=== PATIENT | female | born 1975 | race American Indian/Alaskan Native ===

== ENCOUNTER 2018-08-03 06:19 | Day surgery (SDC) | payer BC ==
[~2018-08-03 06:19] MED LIST: ANCEF/STERILE WATER 2 GM/20 ML 2 GM/20 ML SYRINGE IV NR
[2018-08-03] MEDS ORDERED: LACTATED RINGERS 1,000 ML IV SCH (06:24)
[2018-08-03] MEDS ORDERED: LACTATED RINGERS 1,000 ML ONE (06:36)
[2018-08-03] MEDS ORDERED: XYLOCAINE 1% 20 mL ONE (07:15)
[2018-08-03] MEDS ORDERED: DECADRON ONE (07:16)
[2018-08-03] MEDS ORDERED: MARCAINE 0.25% INFILTRATI ONE ×2 (07:16→07:45)
[2018-08-03] MEDS ORDERED: ANTIBIOTIC OINT TP ONE (07:16)
--- NOTE | 2018-08-03 07:23 | Anesthesia Day of Surgery ---
Anesthesia Day of Surgery - Day of Surgery Patient Examined: Yes Patient H&P Reviewed: Yes Patient is NPO: Yes
--- NOTE | 2018-08-03 07:23 | Anesthesia Consultation ---
Anesthesia Consult and Med Hx Date of service: 08/03/18 - Airway Anesthetic Teeth Evaluation: Good ROM Head & Neck: Adequate Mental/Hyoid Distance: Adequate Mallampati Class: Class II Intubation Access Assessment: Probably Good - Pre-Operative Health Status ASA Pre-Surgery Classification: ASA2 - Pulmonary Hx Smoking: No (STOPPED X 25 YRS) Hx Sleep Apnea: No (PATRICK PRE SCREEN LOW RISK.) - Cardiovascular System Hx Hypertension: No (RECENTLY HBP-NO DX , NO MEDS) - Hematic Hx Anemia: Yes ( CHILD ONLY) - Other Systems Hx Alcohol Use: Yes (WINE QD) Hx Cancer: No
[2018-08-03] MEDS ORDERED: VERSED ONE (07:34)
[2018-08-03] MEDS ORDERED: XYLOCAINE MPF 2% ONE (07:34)
[2018-08-03] MEDS ORDERED: DILAUDID ONE (07:34)
[2018-08-03] MEDS ORDERED: DIPRIVAN 10 MG/ML IV ONE ×2 (07:34→08:04)
[2018-08-03] MEDS ORDERED: NACL 0.9% IR ONE (07:45)
[2018-08-03] MEDS ORDERED: DECADRON IV ONE (07:45)
[2018-08-03] MEDS ORDERED: XYLOCAINE 1% 20 mL INFILTRATI ONE (07:45)
[2018-08-03] MEDS ORDERED: DILAUDID IV PRN (08:00)
[2018-08-03] MEDS ORDERED: SUBLIMAZE IV PRN (08:00)
[2018-08-03] MEDS ORDERED: VERSED IV NR (08:00)
[2018-08-03] MEDS ORDERED: PEPCID IV NR (08:00)
[2018-08-03] MEDS ORDERED: ZOFRAN IV PRN (08:00)
[2018-08-03] MEDS ORDERED: ZOFRAN ONE (08:18)
[2018-08-03] MEDS ORDERED: TORADOL ONE (08:31)
[2018-08-03 09:37] VITALS: BP 146/64
--- NOTE | 2018-08-03 15:01 | Post Anesthesia Evaluation ---
- Post Anesthesia Evaluation Patient Participated: Yes Airway Patent: Yes Stable Respiratory Function: Yes Nausea/Vomiting: No Temp > 96.8F: Yes Pain Manageable: Yes Adequeate Hydration: Yes Anesthesia Complications: No
--- NOTE | 2018-08-04 11:05 | Operative Report ---
PREOPERATIVE DIAGNOSIS: Painful bunion, right foot. POSTOPERATIVE DIAGNOSIS: Painful bunion, right foot. SURGICAL PROCEDURE: Modified Sims bunionectomy, right foot. ANESTHESIA: Local with IV sedation. TOURNIQUET: Pneumatic ankle tourniquet, right ankle. ESTIMATED BLOOD LOSS: Less than 10 mL. PROCEDURE IN DETAIL: The patient was brought into the operating room, placed on the operating table in supine position. Following intravenous sedation, the patient was given 2 grams of Ancef prophylactically. At this time, a well-padded pneumatic ankle tourniquet was placed to 2-3 cm proximal to both the medial and lateral malleoli. At this time,via sterile technique, alcohol was used to cleanse the medial aspect of the first ray in which 15 mL of a 1:1 mixture of 1% lidocaine plain plus 0.5% Marcaine plain was infiltrated into the affected area. At this time, attention was directed to the tourniquet, which Esmarch was used to exsanguinate the foot to 250 mmHg after sterile prep of the affected foot and ankle was done. At this time, a 6 cm linear longitudinal incision was made to the medial aspect of the first metatarsophalangeal joint. It was deepened with both sharp and blunt dissection down to the level of the capsular tissue with care being taken to protect all vital neurovascular structures. At this time, dissection was carried deep to the first metatarsophalangeal joint once there was noted to be prominent bone with the dorsum of the first metatarsal and prominent bone at the dorsum of the proximal phalanx along with medial bone hypertrophy. At this time, with the use of a sagittal bone saw, the bone was removed without incident and passed from the operative field and sent to the laboratory for further diagnosis and evaluation. It should be noted that a medial approach was used to perform a lateral release and at this particular time, a rotating football bur was used to contour all sharp edges and the area was flushed copiously with normal sterile saline. Deep closure was performed while the foot was loaded with 2.0 Vicryl, 3.0 Vicryl, and 4.0 Vicryl. Subcuticular closure was performed with 4.0 Prolene. 1 mL of dexamethasone phosphate was infiltrated into the affected area. Steri-Strip was applied along with bacitracin ointment, Adaptic, a sterile compression dressing. Pneumatic ankle tourniquet was deflated with a prompt hyperemic response to all digits of the affected foot. The patient tolerated the procedure and anesthesia well, and will be discharged home after transfer to recovery and all vital signs monitored prior to discharge. The patient will be placed in a postoperative shoe, weightbearing to tolerance. JOB# [id number] MOJGAN/FRANDY DICKD
== END 2018-08-03 10:03 | disposition home or self-care (01) ==
LOC: OR 06:19
PROVIDERS: ATTEND Podiatrist Foot & Ankle Surgery
DX: M21.611 Bunion of right foot (principal); Z79.899 Other long term (current) drug therapy; Z87.891 Personal history of nicotine dependence; Z72.89 Other problems related to lifestyle; Z86.2 Personal history of diseases of the blood and blood-forming organs and certain disorders involving the immune mechanism
CPT/HCPCS: 28292; 81025; 88304; 88311; J0690; J1100; J1170; J1885; J2250; J2405; J2704; J7120